=== PATIENT | male | born 1985 | race Caucasian/White ===

== ENCOUNTER 2018-02-15 09:37 | Emergency (ER) | payer OTHER ==
[~2018-02-15] VITALS: Ht 162.6 cm; Wt 68.0 kg
[2018-02-15 09:39] VITALS: BP 147/82
--- NOTE | 2018-02-15 09:46 | NUR ---
Pt taken to bed 11.
--- NOTE | 2018-02-15 09:47 | NUR ---
Dr. Barrios at bedside.
--- NOTE | 2018-02-15 09:52 | NUR ---
Pt comes to er c/o cp 03/17 for 1 and a half months. pt denies n/v/sob or dizziness. pt placed on all moniotrs, vs wnnancy. at bedside to ubaldo.
[2018-02-15] MEDS ORDERED: IBUPROFEN 400 MG TAB PO ONE (09:55)
[2018-02-15] MEDS ORDERED: FAMOTIDINE 20 MG TAB PO ONE ×3 (09:55→10:05)
[2018-02-15] MEDS ORDERED: ASPIRIN 81 MG TAB.CHEW PO ONE (09:55)
[2018-02-15 10:11] LABS: BASOPHILS % (AUTO) 0.5 % (0.0-2.0); EOSINOPHILS # (AUTO) 0.1 K/uL (0-0.4); HEMATOCRIT 44.6 % (36-52); HEMOGLOBIN 14.9 g/dL (12.0-18.0); LYMPHOCYTES % (AUTO) 17.6 % (20.5-51.1); MEAN CORPUSCULAR HEMOGLOBIN 29 pg (27-31); MEAN CORPUSCULAR HGB CONC 34 g/dL (33-37); MEAN CORPUSCULAR VOLUME 86.1 fL (80-94); MONOCYTES # (AUTO) 0.4 K/uL (0.8-1.0); MONOCYTES % (AUTO) 7.1 % (1.7-9.3); NEUTROPHILS # (AUTO) 4.1 K/uL (1.8-7.7); NEUTROPHILS % (AUTO) 73.8 % (42.2-75.2); PLATELET COUNT (AUTO) 223 K/uL (140-450); RED BLOOD CELL COUNT(AUTO) 5.18 MIL/uL (4.20-6.10); RED CELL DISTRIBUTION WIDTH 13.5 % (11.6-13.7); WHITE BLOOD COUNT (AUTO) 5.6 K/uL (4.8-10.8)
[2018-02-15 10:18] LABS: ANION GAP 9.6 (8-16); CARBON DIOXIDE 29.1 mmol/L (21-32); CREATININE 0.8 mg/dL (0.7-1.3); POTASSIUM 3.7 mmol/L (3.5-5.1)
[2018-02-15 10:25] LABS: ALBUMIN 4.3 g/dL (3.4-5.0); TOTAL BILIRUBIN 0.6 mg/dL (0.0-1.0)
[2018-02-15 10:34] LABS: PROTHROMBIN TIME 11.6 secs (10.8-13.4)
[2018-02-15 11:02] VITALS: BP 101/90
== END 2018-02-15 11:03 | disposition home or self-care (01) ==
LOC: MED 09:37
DX: R07.89 Other chest pain (principal); R01.1 Cardiac murmur, unspecified; Z88.0 Allergy status to penicillin
CPT/HCPCS: 36415; 71045; 80053; 83690; 84484; 85025; 85610; 85730; 93005; 99285; Q0092